=== PATIENT | male | born 1960 | race Caucasian/White ===

== ENCOUNTER 2025-06-11 15:01 | Inpatient (IN) ==
--- NOTE | 2025-06-11 15:12 | Emergency Department Note ---
Impression & Plan Pyelonephritis, Dysuria, Abdominal pain, Sepsis ED Provider Note CHIEF COMPLAINT: Trouble urinating, back pain, history of kidney stones HISTORY OF PRESENTING ILLNESS: The patient is a 64-year-old male with a PMH DM type II who presents to the emergency department reporting that he had kidney stones removed 3 weeks ago and a stent taken out 6 days ago. He was feeling fine and is now having difficulty voiding. Patient also reports burning with urination, urgency, frequency, left-sided abdominal pain, nausea, and chills that began 3 days ago. He denies fevers, chest pain, shortness of breath, vomiting, constipation, diarrhea. REVIEW OF SYSTEMS: See HPI for pertinent positives and pertinent negatives. ALLERGIES: NKDA MEDICATIONS: See below PAST MEDICAL HISTORY: See below PHYSICAL EXAM: VITALS: Vitals are noted on the nurses note and reviewed by myself. Mildly tachycardic 111. Vital signs stable. GENERAL: 64-year-old male, in no acute distress, nondiaphoretic, well-developed well-nourished. SKIN: Capillary refill less than 2 seconds. HEENT: Normocephalic. PERRLA. EOMI. Nares patent. Mucous membranes moist. Neck is supple without nuchal rigidity. HEART: Regular rate and rhythm without murmurs gallops or rubs. LUNGS: CTA BL without wheezes, rales or rhonchi. No retractions or accessory muscle use. ABDOMEN: Positive BS x 4. Soft, tenderness upon palpation to the left lower quadrant and flank, all other abdominal quadrants are nontender, without masses or organomegaly. No guarding or rebound tenderness. MUSCULOSKELETAL: No gross musculoskeletal defects. NEURO: Patient was alert and oriented to person place and time. No focal neurological deficits. DIFFERENTIAL DIAGNOSIS: Differential diagnosis includes stent removal complication, obstructing stone, pyelonephritis, UTI, kidney stone, appendicitis, diverticulitis, bowel obstruction, inflammatory bowel disease, renal colic, PUD, biliary pathology, pancreatitis, mesenteric ischemia, aortic pathology, infection, genitourinary, perforated viscus, sepsis, among others. ED COURSE AND MEDICAL DECISION MAKING: HISTORY FROM INDEPENDENT HISTORIAN: The patient himself. MEDICATIONS GIVEN: Tylenol 1000 mg IV, Zofran 4 mg IV, 2 g Rocephin, 2 L normal saline INTERPRETATION OF LABS: I interpreted the labs with full lab results as below in the lab section of this note. Pertinent lab results discussed in the MDM section below. INTERPRETATION OF IMAGING: Imaging studies were interpreted by myself and read by radiology as per the imaging section of this note. CT abdomen pelvis - Circumferential urinary bladder wall thickening favoring acute cystitis. Mild left hydronephrosis. Hydroureter and periureteral inflammatory change representing pyelonephritis. ESCALATION OF CARE CONSIDERED: Escalation of care was considered as the patient just recently had left sided kidney stone and stent removal and is now presenting with urinary symptoms. A full workup was completed showing left- sided pyelonephritis and sepsis. The patient was admitted to medicine for IV antibiotics and observation. CONSULTATIONS: On-call [facility] hospitalist -presented the patient to the provider recent kidney stone and stent removal, left-sided pyelonephritis, mildly tachycardic, and an elevated WBC. I do feel that the patient would benefit from IV antibiotics and observation overnight and the hospitalist is agreeable to admission for medicine. MDM SUMMARY: I evaluated the 64-year-old male who presents to the emergency department due to urinary symptoms and left-sided abdominal pain for 3 days. See HPI and PE above. IV access was established and labs were obtained. Tylenol, Zofran, and 2 L normal saline were given for symptom management. Patient is mildly tachycardic with a rate of 111. Labs show leukocytosis WBC 13.23. Hemodynamically stable. No electrolyte abnormality. No JAZMYN. Lipase elevated 410. Patient now reports nausea but denies upper abdominal pain. There are no physical exam findings consistent with pancreatitis. Urinalysis was obtained showing UTI. CT abdomen and pelvis obtained showing cystitis and left-sided pyelonephritis. There is no abscess or other complication. Due to the patient's history of kidney stones/stent removal, pyelonephritis, being tachycardic, with leukocytosis and elevated lipase I do believe it is of the patient's best interest to be admitted to medicine. Patient does not meet sepsis criteria. A consultation with the hospitalist can be seen in detail above. The patient was given 2 g Rocephin. Patient is agreeable to admission and all of his questions were answered. The patient was admitted in stable condition. DIAGNOSIS: Pyelonephritis, dysuria, abdominal pain, sepsis The chart was completed utilizing [employer] voice recognition software. Grammatical errors, random word insertions, pronoun errors, and incomplete sentences are an occasional consequence of this system due to software limitations, ambient noise, and hardware issues. Any formal questions or concerns about the content, text, or information contained within the body of this dictation should be directly addressed to the provider for clarification. Past Med/Surg History Problem List (Updated 06/11/25 @ 18:52 by Sloane Flood PA-C) Sepsis (Acute) Abdominal pain (Acute) Dysuria (Acute) Pyelonephritis (Acute) Dysuria (Acute) Neutrophilic leukocytosis (Acute) Pyelonephritis of left kidney (Acute) Type 2 diabetes mellitus (Chronic) Duodenal ulcer (Chronic) 4mm on EGD 01/19/25. H.pylori negative. Recommended Pantoprazole x 12 weeks. Obesity (BMI 30.0-34.9) Reducible left inguinal hernia (Chronic) Reducible umbilical hernia (Chronic) Cervical stenosis of spinal canal (Chronic 07/22/14) Medical History Left nephrolithiasis Kidney stones current BPH (benign prostatic hyperplasia) Hx of cardiac murmur Dyslipidemia "borderline" Hypertension Surgical History History of lithotripsy History of tooth extraction H/O colonoscopy (08/11/24) H/O neck surgery (2014) cervical fusion>? 1 level >rom limited side to side Family History Mother Diabetes Cancer Brother Intestinal cancer Father Hypertension Uncle Stroke Other No family history of adverse response to anesthesia Social History Smoking Status: Never smoker Tobacco Type: Smokeless Tobacco (Dip or Chew) Second Hand Exposure: No; Do You Dip or Chew Tobacco: Yes (advised); Hx Alcohol Use: No Hx Substance Use: No Preferred Language: [place] Tower Watchman Required: No Beliefs That Will Affect Care: None marital status: Current Living Situation: Alone current occupational status: employed current occupation: Strings Teacher How many Children do You have: 3 Feels Safe at Home: Yes Childhood Exposure to Second-Hand Smoke: Yes Diet: regular caffeine: Yes during the past year weight has: increased > 10 lbs Dental Care, Regularly: No Physical Activity Frequency: Daily Seatbelt Use: always Sunscreen Use: Yes Assistive Devices: Glasses Allergies Allergies Allergy/AdvReac Type Severity Reaction Status Date / Time No Known Allergies Allergy Verified 06/11/25 17:23 Home Meds Home Medications Medication Instructions Recorded Confirmed glyburide micronized 6 mg tablet 6 mg PO QAM 12/24/24 06/11/25 diclofenac sodium 1 % topical gel 2 g topical TID PRN Pain 01/08/25 06/11/25 (Arthritis Pain (diclofenac)) tamsulosin 0.4 mg capsule 0.4 mg PO DAILY 06/11/25 06/11/25 Previous Rx's Medication Instructions Recorded hyoscyamine sulfate 0.125 mg 0.125 mg PO BID PRN dyspepsia #60 01/19/25 tablet (Levsin) tabs blood-glucose sensor (FreeStyle #2 ea 01/29/25 Migel 3 Plus Sensor device) empagliflozin 10 mg tablet 10 mg PO QAM #90 tabs 01/29/25 (Jardiance) metformin 1,000 mg tablet 1,000 mg PO BID 90 days #180 tabs 01/29/25 pantoprazole 40 mg tablet,delayed 40 mg PO BID 90 days #180 tabs 01/29/25 release valsartan 80 mg tablet 80 mg PO QAM #90 tabs 01/29/25 rosuvastatin 10 mg tablet 10 mg PO DAILY #90 tabs 01/30/25 linaclotide 145 mcg capsule 145 mcg PO DAILY #30 caps 03/09/25 (Linzess) semaglutide 0.25 mg or 0.5 mg (2 0.25 mg (0.368 mL) subcut Q7D #3 mL 06/01/25 mg/3 mL) subcutaneous pen injector (Ozempic) Results & Data (ED) Vital Signs Vital Signs - 24 hr 06/11/25 15:05 Temperature 36.6 C Temperature Source Temporal Artery Scan Pulse Rate 111 H Respiratory Rate 18 Blood Pressure 148/89 H Blood Pressure Mean 108 Pulse Oximetry 97 Oxygen Delivery Method Room Air Sepsis Recent Fever Within 48 Hours No Sepsis New/Unexplained Change in Mental Status No Sepsis Action Taken by Nursing No Action Required Laboratory Data 06/11/25 15:27 06/11/25 15:27 Lab Results 06/11/25 06/11/25 Range/Units 15:27 15:40 WBC 13.23 H (4.8-10.8) K/ul RBC 4.97 (4.70-6.10) M/uL Hgb 15.8 (14.0-18.0) g/dl Hct 44.5 (42.0-52.0) % MCV 89.5 (80.0-100.0) fL MCH 31.8 (25.0-34.0) pg MCHC 35.5 (32.0-36.0) g/dL RDW Std Deviation 40.3 (36.4-46.3) fL RDW Coeff of Zachary 12.3 (11.5-14.5) % Plt Count 156 (130-400) K/uL MPV 9.9 (9.4-12.4) fL Immature Gran % (Auto) 0.8 % Neut % (Auto) 78.2 % Lymph % (Auto) 11.5 % [place] % (Auto) 8.8 % Eos % (Auto) 0.3 % Baso % (Auto) 0.4 % Neut # (Auto) 10.35 H (1.40-6.50) K/uL Lymph # (Auto) 1.52 (1.20-3.40) K/uL Imperial # (Auto) 1.17 H (0.11-0.59) K/uL Eos # (Auto) 0.04 (0.00-0.50) K/uL Baso # (Auto) 0.05 (0.00-0.20) K/uL Immature Gran # (Auto) 0.10 (0.01-0.20) K/uL Sodium 137 (136-145) mmol/L Potassium 4.2 (3.5-5.1) mmol/L Chloride 105 (98-107) mmol/L Carbon Dioxide 24 (21-32) mmol/L Anion Gap 8 (3-11) BUN 13 (6-23) mg/dl Creatinine 1.15 (0.6-1.4) mg/dl Est Cr Clr Drug Dosing 64.8 ml/min eGFR 71.96 BUN/Creatinine Ratio 11.3 (10-20) Glucose 120 H (70-99(Fasting)) mg/dl Calcium 9.4 (8.6-10.3) mg/dl Total Bilirubin 1.1 H (0.2-1.0) mg/dl AST 11 L (13-39) U/L ALT 14 (7-52) U/L Alkaline Phosphatase 40 (34-104) U/L Total Protein 7.6 (6.0-8.3) gm/dl Albumin 4.2 (3.4-5.0) gm/dl Globulin 3.4 (2.5-4.0) gm/dl Albumin/Globulin Ratio 1.2 (0.9-2) Lipase 410 H (11-82) U/L Urine Color Yellow Urine Appearance Clear (Clear) Urine pH 5.5 (4.5-7.5) Ur Specific [place] 1.040 H (1.000-1.030) Urine Protein 2+ H (Negative) Urine Glucose (UA) 2+ H (Negative) Urine Ketones 1+ H (Negative) Urine Blood Trace H (Negative) Urine Nitrite Negative (Negative) Urine Bilirubin Negative (Negative) Urine Urobilinogen Negative (Negative) Ur Leukocyte Esterase 1+ H (Negative) Urine WBC (Auto) >50 H (0-5) /hpf Urine RBC (Auto) 0-2 (0-2) /hpf U Hyaline Cast (Auto) 0-2 (0-2) /lpf U Epithel Cells (Auto) 0-2 (0-2) /hpf Urine Bacteria (Auto) None Seen (None Seen) Urine Comment Administered Medications Sodium Chloride (Nss) 1,000 mls @ 999 mls/hr IV .Q1H1M MIESHA Stop: 06/11/25 19:15 Last Infusion: 06/11/25 18:31 Dose: Infused Documented By: Admin: 06/11/25 17:16 Dose: 999 mls/hr Documented By: LAVONNE Discontinued Medications Ceftriaxone Sodium (Rocephin) 2,000 mg in 50 mls @ 100 mls/hr IV NOW STA Stop: 06/11/25 17:36 Last Infusion: 06/11/25 18:31 Dose: Infused Documented By: NRTres Admin: 06/11/25 17:16 Dose: 100 mls/hr Documented By: LAVONNE Acetaminophen (Ofirmev) 1,000 mg in 100 mls @ 400 mls/hr IV NOW STA Stop: 06/11/25 17:21 Last Infusion: 06/11/25 18:31 Dose: Infused Documented By: Admin: 06/11/25 17:16 Dose: 400 mls/hr Documented By: LAVONNE Ioversol (Optiray 320 100ml) 93 ml IV ONCE ONE Stop: 06/11/25 16:16 Last Admin: 06/11/25 16:16 Dose: 93 ml Documented By: SHER Ondansetron HCl (Ondansetron Inj 2 Mg/Ml 2 Ml Vial) 4 mg IV NOW STA Stop: 06/11/25 17:08 Last Admin: 06/11/25 17:16 Dose: 4 mg Documented By: LAVONNE Trimethoprim/Sulfamethoxazole (Sulfamethoxazole/Trimethoprim Ds 800/160mg Tab) 1 tab PO NOW ONE Stop: 06/11/25 16:54 Last Admin: 06/11/25 17:21 Dose: Not Given Documented By: LAVONNE Imaging Data Radiologist's Impression: Abdomen/Pelvis CT 06/11/25 15:22 EXAMINATION: Abdomen and pelvis CT with CLINICAL HISTORY: Abdominal pain, chills, urinary symptoms PRIORS: Plain film 12/01/2024, CT 09/25/2024 TECHNIQUE: Contiguous axial images were obtained through the abdomen and pelvis with the use of intravenous contrast. Sagittal and coronal reformations are supplied. FINDINGS: Lung bases unremarkable. Hepatomegaly measuring 19.4 cm present. Liver enhances homogeneously. Multiple gallstones present in the lumen without regional inflammatory change. The portal vein, pancreas, spleen, under distended stomach, adrenals, aorta and IVC are morphologically unremarkable. The kidneys enhance symmetrically. Subtle striated nephrogram present in the left kidney, appearing in the interval. Mild left hydronephrosis and hydroureter present with no obstructing calculus identified. Mild periureteral fat stranding present. Nonobstructing calculus present in the left kidney, upper pole. Circumferential urinary bladder wall thickening is noted phleboliths in the pelvis, unchanged. These are located inferior to the distal ureter insertion onto the bladder. Moderate enlargement of the prostate, also unchanged. Mild perivesicular inflammatory change. Small bilateral inguinal hernias present. No dilated loops of bowel or obstruction. Small nonpathologically enlarged lymph nodes present in the retroperitoneum. Appendix is normal. Pars defects at L5-S1 with very subtle anterolisthesis and diffuse disc bulge noted. IMPRESSION: 1. Circumferential urinary bladder wall thickening with perivesicular inflammatory change favoring Acute Cystitis. Mild left hydronephrosis, hydroureter and periureteral inflammatory change with focal left kidney striated nephrogram representing pyelonephritis. No renal abscess or fluid collection at this time. ACT 112: Positive. There are findings on this examination that require communication between the performing entity and the patient following Patient Test Result Information Act ([place] ACT 112) guidelines. Electronically signed by Kayli Jara 06-11-2025 4:31 PM Discharge Plan Visit Data Chief Complaint: Urinary Symptoms Stated Complaint: TROUBLE URINATING, BACK PAIN, HX KIDNEY STONES ED Provider: Aurelio Faria ED Midlevel Provider: Sloane Flood Discharge Problem: Pyelonephritis, Dysuria, Abdominal pain, Sepsis Patient Disposition: Home - Self-Care Condition: Good Discharge Problem: Sepsis Qualifiers: Sepsis acute organ dysfunction status: without acute organ dysfunction
[2025-06-11 15:43] LABS: Hematocrit (blood only) 44.5 % (42.0-52.0); Hemoglobin 15.8 g/dl (14.0-18.0); Immature Granulocytes # (auto) 0.10 K/uL (0.01-0.20); Immature Granulocytes % (auto) 0.8 %; Mean Corpuscular Hemoglobin 31.8 pg (25.0-34.0); Mean Corpuscular Volume 89.5 fL (80.0-100.0); Platelet Count 156 K/uL (130-400); RDW Standard Deviation 40.3 fL (36.4-46.3); Red Blood Count 4.97 M/uL (4.70-6.10); White Blood Count 13.23 K/ul (4.8-10.8)
[2025-06-11 15:58] LABS: Appearance Urine Clear (Clear); Bacteria Urine Automated None Seen (None Seen); Cast Urine Automated 0-2 /lpf (0-2); Epithelial Cell Urine Auto 0-2 /hpf (0-2); Glucose Urine UA 2+ (Negative); RBC Urine Automated 0-2 /hpf (0-2); WBC Urine Automated >50 /hpf (0-5)
[2025-06-11 16:01] LABS: Anion Gap 8.0 (3-11); Blood Urea Nitrogen 13.0 mg/dl (6-23); Carbon Dioxide 24.0 mmol/L (21-32); Chloride 105.0 mmol/L (98-107); Potassium 4.2 mmol/L (3.5-5.1); Sodium 137.0 mmol/L (136-145)
[2025-06-11 16:02] LABS: Alanine Aminotransferase 14.0 U/L (7-52); Albumin Globulin Ratio 1.2 (0.9-2); Albumin Level 4.2 gm/dl (3.4-5.0); Alkaline Phosphatase 40.0 U/L (34-104); Bilirubin,Total 1.1 mg/dl (0.2-1.0); Calcium 9.4 mg/dl (8.6-10.3); Creatinine Clr Calc Pharmacy 64.8 ml/min; Globulin 3.4 gm/dl (2.5-4.0); Glucose 120.0 mg/dl (70-99(Fasting)); Lipase 410.0 U/L (11-82); Total Protein 7.6 gm/dl (6.0-8.3)
[2025-06-11] MEDS: OPTIRAY 320 100ml IV ONE (16:16)
--- NOTE | 2025-06-11 16:32 | CT Scan Report ---
EXAMINATION: Abdomen and pelvis CT with CLINICAL HISTORY: Abdominal pain, chills, urinary symptoms PRIORS: Plain film 12/01/2024, CT 09/25/2024 TECHNIQUE: Contiguous axial images were obtained through the abdomen and pelvis with the use of intravenous contrast. Sagittal and coronal reformations are supplied. FINDINGS: Lung bases unremarkable. Hepatomegaly measuring 19.4 cm present. Liver enhances homogeneously. Multiple gallstones present in the lumen without regional inflammatory change. The portal vein, pancreas, spleen, under distended stomach, adrenals, aorta and IVC are morphologically unremarkable. The kidneys enhance symmetrically. Subtle striated nephrogram present in the left kidney, appearing in the interval. Mild left hydronephrosis and hydroureter present with no obstructing calculus identified. Mild periureteral fat stranding present. Nonobstructing calculus present in the left kidney, upper pole. Circumferential urinary bladder wall thickening is noted phleboliths in the pelvis, unchanged. These are located inferior to the distal ureter insertion onto the bladder. Moderate enlargement of the prostate, also unchanged. Mild perivesicular inflammatory change. Small bilateral inguinal hernias present. No dilated loops of bowel or obstruction. Small nonpathologically enlarged lymph nodes present in the retroperitoneum. Appendix is normal. Pars defects at L5-S1 with very subtle anterolisthesis and diffuse disc bulge noted. IMPRESSION: 1. Circumferential urinary bladder wall thickening with perivesicular inflammatory change favoring Acute Cystitis. Mild left hydronephrosis, hydroureter and periureteral inflammatory change with focal left kidney striated nephrogram representing pyelonephritis. No renal abscess or fluid collection at this time. ACT 112: Positive. There are findings on this examination that require communication between the performing entity and the patient following Patient Test Result Information Act ([place] ACT 112) guidelines. Electronically signed by Kayli Jara 06-11-2025 4:31 PM
[2025-06-11] MEDS: ONDANSETRON INJ 2 MG/ML 2 ML VIAL IV STA (17:16)
[2025-06-11] MEDS: ACETAMINOPHEN 1,000 MG/100 ML VIAL IV STA (17:16)
[2025-06-11] MEDS: SODIUM CHLORIDE 0.9% 1,000 ML IV SCH (17:16)
[2025-06-11] MEDS: cefTRIAXone SODIUM 2,000 MG/50 ML BAG IV STA (17:16)
[2025-06-11] MEDS: SULFAMETHOXAZOLE/TRIMETHOPRIM DS 800/160MG TAB PO ONE (17:21)
--- NOTE | 2025-06-11 18:10 | History & Physical Report ---
Date of Service June 11, 2025 Assessment & Plan (1) Pyelonephritis of left kidney: (2) Neutrophilic leukocytosis: (3) Dysuria: (4) Type 2 diabetes mellitus: Plan In summary this is a 64-year-old male who presented to the [facility] due to persistent dysuria found to have laboratory and imaging finding concerning for infectious cystitis and pyelonephritis #Pyelonephritis with acute nonhemorrhagic cystitis With regard to the patient's suspected pyelonephritis, his physical exam is not consistent with this diagnosis however his laboratory findings, vital signs, and imaging with recent procedure are concerning for infectious cystitis and pyelonephritis; given his associated constitutional symptoms and the duration of his symptoms, empiric antibiotic treatment will be pursued; urine culture was obtained in the emergency department prior to administration of antibiotics however blood cultures were not obtained prior to antibiotic administration though given again the constitutional symptoms, risk factors for systemic infect ion, and duration of symptoms, these will be obtained; furthermore procalcitonin has been added to the patient's previously obtained blood work for further determination of infectious versus noninfectious cause Continue ceftriaxone 1 g IV daily Follow urine and blood cultures Measure intake and output every shift, contact attending if urine output is less than 0.5 mL/kg/h Follow daily CBC with manual differential, renal function panel #Type II Diabetes mellitus with hyperglycemia Most recent hemoglobin A1c of 6.8% in 01/2025; glycemic target of preprandial less than 140 and random checks less than 180; holding home medication regimen, starting insulin therapy as detailed below - Start glargine 7 units SQ twice daily - Start aspart sliding scale Pharmacy consulted for further glycemic management during hospitalization Updated hemoglobin A1c is currently pending Admission and Anticipated Discharge Date Admission Date: 06/11/2025 Anticipated date of discharge: 06/13/25 History of Present Illness Chief Complaint: Dysuria Primary Care Provider: Howie Scanlon DO Mr. Clarke is a 64-year-old male whose active medical conditions include recent nephrolithiasis having underwent percutaneous removal in the early portion of 05/2025 with recent stent removal on 06/05 during external hospital system in addition to type 2 diabetes mellitus among other chronic medical conditions who presented to the [facility] on 06/11 due to persistent and progressive dysuria, subjective fevers. The patient had their left ureteral stent removal on 06/05 which was uncomplicated, beginning on 06/07 the patient began to experience periurethral dysuria, increased urinary frequency with difficulty to pass urine and only low- volume portions. They deny any mely hematuria, foul-smelling urine. Their discomfort extended proximally to involve the low pelvis and ow involving the high left flank. They have had intermittent fevers and chills without an objective measure of fever for the past 72 hours. The patient contacted their urologist office on the morning of presentation and were advised to present to the emergency department for further evaluation. They were administered a postprocedural dose of Bactrim DS 1 tablet 1 time on the day of the procedure, 06/05 Allergies Allergy/AdvReac Type Severity Reaction Status Date / Time No Known Allergies Allergy Verified 06/11/25 17:23 Home Medications Medication Instructions Recorded Confirmed Type glyburide micronized 6 mg tablet 6 mg PO QAM 12/24/24 06/11/25 History diclofenac sodium 1 % topical gel 2 g topical TID PRN Pain 01/08/25 06/11/25 History (Arthritis Pain (diclofenac)) hyoscyamine sulfate 0.125 mg 0.125 mg PO BID PRN dyspepsia #60 01/19/25 06/11/25 Rx tablet (Levsin) tabs blood-glucose sensor (FreeStyle #2 ea 01/29/25 03/09/25 Rx Migel 3 Plus Sensor device) empagliflozin 10 mg tablet 10 mg PO QAM #90 tabs 01/29/25 06/11/25 Rx (Jardiance) metformin 1,000 mg tablet 1,000 mg PO BID 90 days #180 tabs 01/29/25 06/11/25 Rx pantoprazole 40 mg tablet,delayed 40 mg PO BID 90 days #180 tabs 01/29/25 06/11/25 Rx release valsartan 80 mg tablet 80 mg PO QAM #90 tabs 01/29/25 06/11/25 Rx rosuvastatin 10 mg tablet 10 mg PO DAILY #90 tabs 01/30/25 06/11/25 Rx linaclotide 145 mcg capsule 145 mcg PO DAILY #30 caps 03/09/25 06/11/25 Rx (Linzess) semaglutide 0.25 mg or 0.5 mg (2 0.25 mg (0.368 mL) subcut Q7D #3 mL 06/01/25 06/11/25 Rx mg/3 mL) subcutaneous pen injector (Ozempic) tamsulosin 0.4 mg capsule 0.4 mg PO DAILY 06/11/25 06/11/25 History Past Med/Surg History Problem List (Updated 06/11/25 @ 18:16 by Eliseo Mobley DO) Dysuria (Acute) Neutrophilic leukocytosis (Acute) Pyelonephritis of left kidney (Acute) Type 2 diabetes mellitus (Chronic) Duodenal ulcer (Chronic) 4mm on EGD 01/19/25. H.pylori negative. Recommended Pantoprazole x 12 weeks. Obesity (BMI 30.0-34.9) Reducible left inguinal hernia (Chronic) Reducible umbilical hernia (Chronic) Cervical stenosis of spinal canal (Chronic 07/22/14) Medical History Left nephrolithiasis Kidney stones current BPH (benign prostatic hyperplasia) Hx of cardiac murmur Dyslipidemia "borderline" Hypertension Surgical History History of lithotripsy History of tooth extraction H/O colonoscopy (08/11/24) H/O neck surgery (2014) cervical fusion>? 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 Beliefs That Will Affect Care: None marital status: Current Living Situation: Alone current occupational status: employed current occupation: [employer]er How many Children do You have: 3 Feels Safe at Home: Yes Childhood Exposure to Second-Hand Smoke: Yes Diet: regular caffeine: Yes during the past year weight has: increased > 10 lbs Dental Care, Regularly: No Physical Activity Frequency: Daily Seatbelt Use: always Sunscreen Use: Yes Assistive Devices: Glasses Review of Systems Review of Systems: Review of constitutional, genitourinary, cardiovascular, pulmonary, gastrointestinal systems was unremarkable except as documented in the HPI above Physical Exam Physical Exam: General: Adult male in no acute distress Vital Signs: Tachycardic with regular RR interval appreciated on telemetry HEENT: Tacky mucous membranes; pupils equally round reactive to light, extraocular motion intact Pulmonary: Symmetric chest wall excursion without restriction Cardiovascular: Tachycardic with regular rhythm without murmurs, rubs, or gallops; S1 and S2 normal; bilateral radial pulse 2+ with brisk capillary refill of the upper extremities Gastrointestinal: Soft, protuberant; bowel sounds present throughout the abdomen with normal frequency and pitch Genitourinary: No CVA tenderness elicited bilaterally Neurologic: Cranial nerves II through XII grossly intact; no discernible focal weakness nor paresthesias Results & Data Results & Data Vital Signs (Past 12 Hours) Vital Signs Temp Pulse Resp BP Pulse Ox O2 Del Method 06/11/25 15:05 36.6 C 111 H 18 148/89 H 97 Room Air Laboratory Results Leukocytosis of 13.23 with a neutrophilic predominance Elevated lipase 410 with an associated total bilirubin of 1.1 Urinalysis noted for elevated specific gravity, urine protein, urine glucose, and urinary ketones, leukocyte esterase with a high concentration of urine white blood cells of greater than 50 per high-power field, no bacteria were visualized Urine culture is currently pending Most recent hemoglobin A1c 6.8% in 01/[address] abdomen pelvis with intravenous contrast was obtained in the emergency de partment which notes circumferential urinary bladder wall thickening with fascicular inflammatory changes associated with left hydronephrosis, hydroureter, and periurethral inflammatory change with perinephric fat stranding without evidence of a focal abscess or fluid collection Code Status & VTE Plan Code Status Full code VTE Prophylaxis Plan VTE Prophylaxis will be ordered: Yes PG Care Time/CCT Total # of Minutes Spent Total Time Spent with Patient: Total time spent is greater than 50% in coordination of care (as documented) at patient's floor/unit and/or counseling patient: Coding Level of Care Code 76541 INT INP/OBS CARE 2/55MIN Diagnoses Pyelonephritis of left kidney N12 Neutrophilic leukocytosis D72.828 Dysuria R30.0 Type 2 diabetes mellitus with hyperglycemia, without long-term current use of insulin E11.65 Diabetes mellitus terminologist insulin use: without terminologist use Diabetes mellitus complication status: with hyperglycemia (4) Type 2 diabetes mellitus Diabetes mellitus senior living insulin use: without terminologist use Diabetes mellitus complication status: with hyperglycemia Qualified Code(s): E11.65 - Type 2 diabetes mellitus with hyperglycemia
[2025-06-11] MEDS ORDERED: PHARMACY GLYCEMIC MGMT CONSULT PRN (20:11)
[2025-06-11] MEDS ORDERED: CARBOHYDRATES FOR HYPOGLYCEMIA PO PRN (20:11)
[2025-06-11] MEDS ORDERED: GLUCAGON FOR INJ 1 MG VIAL SQ PRN (20:11)
[2025-06-11] MEDS ORDERED: DEXTROSE 50% 50 ML SYRINGE IV PRN (20:11)
[2025-06-11] MEDS ORDERED: GLUCOSE 10 TAB/TUBE PO PRN (20:11)
[2025-06-11] MEDS ORDERED: GLUCOSE 40% GEL 15 GM TUBE PO PRN (20:11)
[2025-06-11] MEDS: INSULIN ASPART PER UNIT CHARGE SC SCH (20:52)
[2025-06-11] MEDS: KETOROLAC 30 MG/ML VIAL IV SCH (20:59)
[2025-06-11] MEDS ORDERED: LANTUS PER UNIT CHARGE SQ SCH (21:00)
[2025-06-12] MEDS: ACETAMINOPHEN 500 MG TAB PO SCH (05:54)
--- NOTE | 2025-06-12 07:09 | Hospitalist Progress Note ---
Date of Service June 12, 2025 Assessment & Plan (1) Pyelonephritis of left kidney: (2) Neutrophilic leukocytosis: (3) Dysuria: (4) Type 2 diabetes mellitus: Plan In summary this is a 64-year-old male who presented to the [facility] due to persistent dysuria found to have laboratory and imaging finding concerning for infectious cystitis and pyelonephritis #Pyelonephritis with acute nonhemorrhagic cystitis With regard to the patient's suspected pyelonephritis, his physical exam is not consistent with this diagnosis however his laboratory findings, vital signs, and imaging with recent procedure are concerning for infectious cystitis and pyelonephritis; given his associated constitutional symptoms and the duration of his symptoms, empiric antibiotic treatment will be pursued; urine culture was obtained in the emergency department prior to administration of antibiotics however blood cultures were not obtained prior to antibiotic administration though given again the constitutional symptoms, risk factors for systemic infect ion, and duration of symptoms, these will be obtained; furthermore procalcitonin has been added to the patient's previously obtained blood work for further determination of infectious versus noninfectious cause Continue ceftriaxone 1 g IV daily Follow urine and blood cultures Measure intake and output every shift, contact attending if urine output is less than 0.5 mL/kg/h Follow daily CBC with manual differential, renal function panel #Type II Diabetes mellitus with hyperglycemia Most recent hemoglobin A1c of 6.8% in 01/2025; glycemic target of preprandial less than 140 and random checks less than 180; holding home medication regimen, starting insulin therapy as detailed below - Continue glargine 7 units SQ twice daily - Continue aspart sliding scale Pharmacy consulted for further glycemic management during hospitalization Updated hemoglobin A1c is currently pending Admission and Anticipated Discharge Date Admission Date: June 11, 2025 Subjective Mr. Clarke is a 64-year-old male whose active medical conditions include recent nephrolithiasis having underwent percutaneous removal in the early portion of 05/2025 with recent stent removal on 06/05 during external hospital system in addition to type 2 diabetes mellitus among other chronic medical conditions who presented to the [facility] on 06/11 due to persistent and progressive dysuria, subjective fevers. No acute overnight events; the patient feels much improved this morning with no acute complaints or concerns Review of Systems Review of Systems: Review of constitutional, genitourinary, cardiovascular, pulmonary, gastrointestinal systems was unremarkable Physical Exam Physical Exam: General: Adult male in no acute distress Vital Signs: Reviewed HEENT: Moist mucous membranes; pupils equally round reactive to light, extraocular motion intact Pulmonary: Symmetric chest wall excursion without restriction Cardiovascular: Tachycardic with regular rhythm without murmurs, rubs, or gallops; S1 and S2 normal; bilateral radial pulse 2+ with brisk capillary refill of the upper extremities Gastrointestinal: Soft, protuberant Neurologic: Cranial nerves II through XII grossly intact; no discernible focal weakness nor paresthesias Results & Data Results & Data Vital Signs (Past 12 Hours) Vital Signs Temp Pulse Pulse Resp BP BP Pulse Ox 06/12/25 05:28 72 06/12/25 02:02 36.6 C 79 16 149/82 H 98 06/11/25 22:25 36.4 C L 91 H 18 148/90 H 95 06/11/25 21:54 91 H 06/11/25 20:21 88 06/11/25 20:15 36.6 C 91 H 18 135/87 94 06/11/25 19:45 92 H 16 135/84 96 O2 Del Method 06/12/25 05:28 06/12/25 02:02 Room Air 06/11/25 22:25 Room Air 06/11/25 21:54 06/11/25 20:21 06/11/25 20:15 Room Air 06/11/25 19:45 Laboratory Results Leukocytosis resolved Urine culture with pinpoint growth, reculture has been pursued PG Care Time/CCT Total # of Minutes Spent Total Time Spent with Patient: Total time spent is greater than 50% in coordination of care (as documented) at patient's floor/unit and/or counseling patient: Coding Level of Care Code 07301 SUB INP/OBS CARE 2MIN Diagnoses Pyelonephritis of left kidney N12 Neutrophilic leukocytosis D72.828 Dysuria R30.0 Type 2 diabetes mellitus with hyperglycemia, without long-term current use of insulin E11.65 Diabetes mellitus complication status: with hyperglycemia Diabetes mellitus terminal superintendent insulin use: without terminal superintendent use (4) Type 2 diabetes mellitus Diabetes mellitus complication status: with hyperglycemia Diabetes mellitus mcfp insulin use: without mcfp use Qualified Code(s): E11.65 - Type 2 diabetes mellitus with hyperglycemia
[2025-06-12 07:16] LABS: Hematocrit (blood only) 39.8 % (42.0-52.0); Hemoglobin 13.4 g/dl (14.0-18.0); Immature Granulocytes # (auto) 0.07 K/uL (0.01-0.20); Immature Granulocytes % (auto) 0.9 %; Mean Corpuscular Hemoglobin 30.2 pg (25.0-34.0); Mean Corpuscular Volume 89.6 fL (80.0-100.0); Platelet Count 132 K/uL (130-400); RDW Standard Deviation 40.2 fL (36.4-46.3); Red Blood Count 4.44 M/uL (4.70-6.10); White Blood Count 7.58 K/ul (4.8-10.8)
[2025-06-12 07:27] LABS: Albumin Level 3.6 gm/dl (3.4-5.0); Anion Gap 6.0 (3-11); Blood Urea Nitrogen 18.0 mg/dl (6-23); Calcium 8.5 mg/dl (8.6-10.3); Carbon Dioxide 23.0 mmol/L (21-32); Chloride 108.0 mmol/L (98-107); Creatinine Clr Calc Pharmacy 67.3 ml/min; Glucose 105.0 mg/dl (70-99(Fasting)); Potassium 4.0 mmol/L (3.5-5.1); Sodium 137.0 mmol/L (136-145)
[2025-06-12 08:04] LABS: Hemoglobin A1C 6.7 % (4.5-5.6)
[2025-06-12] MEDS: VALSARTAN 80 MG TAB PO SCH (08:38)
[2025-06-12] MEDS: ROSUVASTATIN CALCIUM 10 MG TAB PO SCH (08:38)
--- NOTE | 2025-06-12 11:14 | Pharmacy Report ---
Pharmacy Glycemic Sign Off Nt - Date of Service June 12, 2025 - Assessment & Plan ASSESSMENT: * Pharmacy was consulted by Dr Mobley on 06/11 for glycemic control and to write orders per [facility] inpatient glycemic control protocol. * Major changes made by pharmacy to antidiabetic regimen include: * added novolog scale * Patient has been receiving minimal insulin over last 24 hours PLAN FOR INPATIENT GLYCEMIC CONTROL: No changes needed to current regimen. * Reasonable to continue to hold basal insulin * Continue NovoLog per scale ACHS/Q6hrs while NPO * Goal range = 110 160 mg/dl * CF = 40 mg/dl/unit * CR = 1 unit for ever 15 g CHO consumed * Pharmacy is signing off of glycemic consult and will no longer be making adjustments to inpatient regimen. Please feel free to re-consult if needed. Thank you.
[2025-06-12] MEDS: cefTRIAXone SODIUM 1,000 MG/50 ML BAG IV SCH (16:39)
[2025-06-12 22:09] VITALS: RESP 18; O2SAT 97
[2025-06-13 07:08] VITALS: BP 147/96; TEMP 98.1
[2025-06-13 07:23] LABS: Albumin Level 3.7 gm/dl (3.4-5.0); Anion Gap 6.0 (3-11); Blood Urea Nitrogen 19.0 mg/dl (6-23); Calcium 8.6 mg/dl (8.6-10.3); Carbon Dioxide 25.0 mmol/L (21-32); Chloride 108.0 mmol/L (98-107); Creatinine Clr Calc Pharmacy 58.8 ml/min; Glucose 155.0 mg/dl (70-99(Fasting)); Potassium 4.4 mmol/L (3.5-5.1); Sodium 139.0 mmol/L (136-145)
[2025-06-13 10:24] VITALS: PULSE 79
--- NOTE | 2025-06-13 18:23 | Discharge Summary ---
Discharge Summary Date of Service June 13, 2025 Principal Dx & Hospital Course #1 = Principal Diagnosis (1) Pyelonephritis of left kidney: (2) Neutrophilic leukocytosis: (3) Dysuria: (4) Type 2 diabetes mellitus: Plan In summary this is a 64-year-old male who presented to the [facility] due to persistent dysuria found to have laboratory and imaging finding concerning for infectious cystitis and pyelonephritis #Pyelonephritis with acute nonhemorrhagic cystitis With regard to the patient's suspected pyelonephritis, his physical exam is not consistent with this diagnosis however his laboratory findings, vital signs, and imaging with recent procedure are concerning for infectious cystitis and pyelonephritis; Urine culture had pinpoint growth with repeat culture pending; blood cultures are no growth to date Discontinue ceftriaxone; transition to oral antibiotics through 06/17 Admission HPI Per Admitting Provider Mr. Clarke is a 64-year-old male whose active medical conditions include recent nephrolithiasis having underwent percutaneous removal in the early portion of 05/2025 with recent stent removal on 06/05 during external hospital system in addition to type 2 diabetes mellitus among other chronic medical conditions who presented to the [facility] on 06/11 due to persistent and progressive dysuria, subjective fevers. The patient had their left ureteral stent removal on 06/05 which was uncomplicated, beginning on 06/07 the patient began to experience periurethral dysuria, increased urinary frequency with difficulty to pass urine and only low- volume portions. They deny any mely hematuria, foul-smelling urine. Their discomfort extended proximally to involve the low pelvis and ow involving the high left flank. They have had intermittent fevers and chills without an objective measure of fever for the past 72 hours. The patient contacted their urologist office on the morning of presentation and were advised to present to the emergency department for further evaluation. They were administered a postprocedural dose of Bactrim DS 1 tablet 1 time on the day of the procedure, 06/05 Discharge Exam General: Adult male in no acute distress Vital Signs: Reviewed HEENT: Moist mucous membranes; pupils equally round reactive to light, extraocular motion intact Pulmonary: Symmetric chest wall excursion without restriction Cardiovascular: Regular rate and rhythm without murmurs, rubs, or gallops; S1 and S2 normal; bilateral radial pulse 2+ with brisk capillary refill of the upper extremities Gastrointestinal: Soft, protuberant Neurologic: Cranial nerves II through XII grossly intact; no discernible focal weakness nor paresthesias Discharge Plan Discharge Items Patient Disposition: Home - Self-Care Reason For Visit: POST-PROCEDURAL PYELONEPHRITIS Discharge Diagnosis: Pyelonephritis Condition on Discharge: Good Activity: Resume your previous activity Non-emergency contact: Primary Care Provider and Urologist Call non-emergency contact if: you have any medication questions and you have a fever Follow-up/Referrals: Howie Scanlon DO [Primary Care Provider] - 06/22/25 1:00 pm Yuliet Gandhi MD [Outside Practitioners] - (Hospital follow up after pyelonephritis) Diet: Carb Consistent or DM2 Fluids: 2000ml (8 cups) Addtl Attending Provider Instructions: You were admitted to [facility] for pyelonephritis associated with acute nonhemorrhagic cystitis. With regard to your admitting diagnosis, your symptoms rapidly improved with antibiotic intervention and analgesic control. You will be discharged on a continued total 7-day course of antibiotics through 06/17. Thank you for choosing [facility] as your healthcare provider. Pending Studies at Discharge: Yes Studies:: Repeat urine culture, final blood culture results Stand-Alone Forms: My [facility] Medications and DC Order Prescriptions: New levofloxacin 750 mg tablet 750 mg PO DAILY 4 Days Qty: 4 0RF Continued rosuvastatin 10 mg tablet 10 mg PO DAILY Qty: 90 3RF Ozempic 0.25 mg or 0.5 mg (2 mg/3 mL) pen injector 0.25 mg subcut Q7D Qty: 3 1RF Rx Instructions: SUNDAYS glyburide micronized 6 mg tablet 6 mg PO QAM diclofenac sodium [Arthritis Pain (diclofenac)] 1 % gel 2 g topical TID PRN (Reason: Pain) Rx Instructions: apply topically to affected area for pain Linzess 145 mcg capsule 145 mcg PO DAILY Qty: 30 2RF metformin 1,000 mg tablet 1,000 mg PO BID 90 Days Qty: 180 3RF Rx Instructions: PER PT "IF BSG IS LOW AT PM, DOESN'T TAKE METFORMIN". Jardiance 10 mg tablet 10 mg PO QAM Qty: 90 3RF valsartan 80 mg tablet 80 mg PO QAM Qty: 90 3RF pantoprazole 40 mg tablet,delayed release (/EC) 40 mg PO BID 90 Days Qty: 180 1RF (DME) FreeStyle Migel 3 Plus Sensor Device See Rx Instructions .Route Qty: 2 6RF Rx Instructions: CGM; change sensor every 15 days tamsulosin 0.4 mg capsule 0.4 mg PO DAILY hyoscyamine sulfate [Levsin] 0.125 mg tablet 0.125 mg PO BID PRN (Reason: dyspepsia) Qty: 60 7RF Discharge Orders: Discharge Order (Routine); Ordered 06/13/25 Ordered By: Eliseo Morel/Other Patient Handouts: Managing Type 2 Diabetes Admission Data Admit Date/Time: 06/12/25 13:50 Attending Provider: Eliseo Mobley Admit Provider: Eliseo Mobley Primary Care Provider: Howie Scanlon Other Interventions: Discharge Summary Assessment (RN) Last Done: 06/13/25 10:23 Hospital Stay Data Diagnostic Imagining Performed 06/11/25 15:22 CT Abd and Pelvis [CT abd pelvis IV con only] Stat Pending Results Patient Have Any Pending Studies at Discharge: Yes Discharge Instructions Given to Patient (Per Discharging Provider) You were admitted to [facility] for pyelonephritis associated with acute nonhemorrhagic cystitis. With regard to your admitting diagnosis, your symptoms rapidly improved with antibiotic intervention and analgesic control. You will be discharged on a continued total 7-day course of antibiotics through 06/17. Thank you for choosing [facility] as your healthcare provider. Total Time Total Time Spent Total Time Spent (In Minutes): I spent 40 minutes in coordination of the patient including chart review, physical exam, and discussing the plan of care with the patient at bedside Coding Level of Care Code 70741 INP/OBS DISCH >30 MIN Diagnoses Pyelonephritis of left kidney N12 Neutrophilic leukocytosis D72.828 Dysuria R30.0 Type 2 diabetes mellitus with hyperglycemia, without long-term current use of insulin E11.65 Diabetes mellitus aviation project manager insulin use: without aviation project manager use Diabetes mellitus complication status: with hyperglycemia
== END 2025-06-13 11:21 | disposition home or self-care (01) | DRG 690 ==
LOC: EDINP 15:01 → ED 15:01 → 2N 19:45